=== PATIENT | female | born 1930 | race Caucasian/White ===

== ENCOUNTER 2017-12-30 15:58 | Inpatient (IN) | payer OTHER ==
[~2017-12-30] VITALS: Ht 162.6 cm; Wt 68.6 kg
--- NOTE | ~2017-12-30 | HC ---
[facility] [place] [address] CONSULTATION Name: ILIACHETAN Gayatri Room #: 204-P [facility] IN ..#: [id number] Admission: 12/30/17 Attend Phys: Soila Pearce MD Discharge: 01/02/18 Date of : [birth year] Report #: [id number] THIS REPORT FOR: //name// CC: Arnoldo Pearce DATE OF SERVICE: 12/31/2017 HISTORY OF PRESENT ILLNESS: The patient is an 87-year-old white female with history of hypertension, coronary artery disease, prior CVA with right-sided weakness and aphagia, history of cardiac stents, who was noted to have acute on chronic congestive heart failure. She has been admitted to [facility] and Cardiology is following regarding her CHF symptomatology. She has the prior CVA with aphasia and right-sided weakness. Upon discussion with the patient's [id number], there has been a decline in her overall function as she was able to ambulate short distances, but lately has been pivoting with the help of the using a 4-wheeled walker and has had overall decline in her function. The goal the family is to try to move the patient and her into an assisted living facility. We are seeing her in rehabilitation medicine consultation. PAST MEDICAL HISTORY: Again includes the prior CVA with right-sided weakness and aphasia. There is a history of bronchitis, pericarditis, malaria as a child, hyperlipidemia, spinal stenosis with laminectomy, hypertension, right renal stent, carotid stenosis, status post stenting, right toe amputation, bilateral carpal tunnel surgery, and permanent pacemaker in situ. ALLERGIES: CELECOXIB, SULFA, STATINS. MEDICATIONS: Please see the full medication listing. SOCIAL HISTORY: As noted above. Currently living at the forum in an apartment with her . Family notes that she is active and involved, but is starting to have some memory problems. REVIEW OF SYSTEMS: Did not offer any current complaints of chest pain, shortness of breath or abdominal discomfort, although it is somewhat difficult to get a full history from her with her aphasia. No focal extremity pain complaints. HABITS: Past tobacco abuse, quit greater than a year ago, [id number] history. Alcohol on special occasions. PHYSICAL EXAMINATION: GENERAL: An 87-year-old white female, in no obvious distress. VITAL SIGNS: Last recorded temperature is 97.4, pulse 71, respirations 20, [facility] [address] [place] [address] CONSULTATION Name: CHETAN MORILLO Room #: 204-P [facility] IN [facility].#: [id number] Admission: 12/30/17 Attend Phys: Soila Pearce MD Discharge: 01/02/18 Date of : [birth year]/23/[birth year] Report #: [id number] blood pressure is 115/53. NEUROLOGIC: She is alert. She has a definite aphasia, has difficulty with word formation and word finding. She was able to name a watch for me. She can follow some basic 1 step commands with latency. EOMs appeared to be full. She has functional range of motion strength of the left upper and left lower extremity. Right upper extremity reveal some decreased coordination with strength probably a grade 4-/5. Right lower extremity is probably a 4-/5. There is definite decreased coordination. Negative Johnson's. There was no clonus at the right ankle; however, she does have some skin excoriations over her bilateral anterior shins. Functionally, she was max assist with sit to stand. Gait was 7 steps max assist, handheld. Toileting has been max assist. ASSESSMENT: An 87-year-old white female with the following problems: 1. Cerebrovascular accident with right hemiparesis with late in affect. She has had overall decline in her functional independence the past several months. 2. Acute on chronic congestive heart failure. 3. Acute renal insufficiency. 4. Permanent atrial fibrillation with prior pacemaker. 5. History of atrioventricular node ablation. 6. Hypertension. 7. Peripheral vascular disease. 8. Spinal stenosis. 9. Hypercoagulable. 10. Lower extremity cellulitis. PLAN: The patient is a candidate for an acute -[place] inpatient rehabilitation stay. Bed availability issues will be checked and we will be glad to follow along with you. <ELECTRONICALLY SIGNED> By: Ivan Jernigan MD 01/03/18 1408 1628 28 Ivan Jernigan MD /nt
--- NOTE | ~2017-12-30 | HC ---
[facility] [place] [address] CONSULTATION Name: CHETAN MORILLO Gayatri Room #: 204-P [facility] IN .R.#: [id number] Admission: 12/30/17 Attend Phys: Soila Pearce MD Discharge: Date of : [birth year] Report #: [id number] THIS REPORT FOR: //name// CC: Arnoldo Pearce DATE OF SERVICE: 12/31/2017 CHIEF COMPLAINT: Bilateral lower extremity ulcerations. HISTORY OF PRESENT ILLNESS: This is an 87-year-old female patient with a known history of coronary artery disease and peripheral vascular disease, who presents with lower extremity ulceration and weeping and some pain. She was a direct admission from Dr. Haney's office with congestive heart failure exacerbation. She has had weeping ulcerations that have been progressively worsening on both lower extremities. She has, in the past, had angiography with percutaneous angioplasty and stent placement and has been seen by Dr. Caicedo as well as by Dr. Helms in the past. PAST MEDICAL HISTORY: Positive for history of hypertension, peripheral vascular disease, congestive heart failure and coronary artery disease. The patient has a history of pericarditis; malaria as a child; spinal stenosis, status post laminectomy and atrial fibrillation. CURRENT MEDICATIONS: Include potassium, Eliquis, Protonix, Lopressor, Flomax, Remeron, Demadex, hydrocodone with acetaminophen, Ventolin, aspirin and diltiazem. SOCIAL HISTORY: The patient smoked cigarettes, less than 1 pack per day for 40 years, quit greater than one year ago. Denies significant alcohol use. REVIEW OF SYSTEMS: CONSTITUTIONAL: The patient denies fever, chills or weight loss. NEUROLOGIC: The patient has focal weakness, numbness or tingling. EYES: The patient denies any visual changes, redness or drainage. ENT: The patient denies earache, nasal drainage or sore throat. CARDIOVASCULAR: The patient denies chest pain, palpitation or diaphoresis. PULMONARY: The patient does complain of cough and some shortness of breath and orthopnea. ORTHOPEDIC: The patient complains of pain, swelling and drainage from her legs; some pain in her feet and a sense that her skin feels cold. The patient's other systems in a 14-point review of systems are negative. PHYSICAL EXAMINATION: VITAL SIGNS: Pulse rate 70, respiratory rate 18, blood pressure 104/49 and temperature 97.8. [address] [address] CONSULTATION Name: CHETAN MORILLO Room #: 204-P [facility] IN [facility]#: [id number] Admission: 12/30/17 Attend Phys: Soila Pearce MD Discharge: Date of : [birth year]/23/[birth year] Report #: [id number] GENERAL: This is a chronically ill-appearing female patient, who appears to be in minimal distress. HEENT: Head normocephalic. Nose and throat are clear. NECK: Supple. LUNGS: Reveal a few crackles and are diminished. HEART: Regular rhythm. ABDOMEN: Soft and bowel sounds present. EXTREMITIES: Examination of the lower extremities demonstrates nonpalpable distal pulses. There is slightly delayed capillary refill. There is some warmth to the skin, but it is cooler on the lower extremities than on her trunk and upper extremities. There are multiple ulcerations to both lower extremities, more so on the left than on the right. They are weeping and draining, but they do not appear to be acutely infected. Some of these may be related to her recent volume overload status. LABORATORY DATA: Includes sodium 138, potassium 4.5, chloride 99, CO2 of 32, BUN is 40, creatinine 1.5 and glucose 108. Albumin is 2.9. BNP is 4631. Her white blood cell count is 8.3 with a hemoglobin of 11.6 and hematocrit of 38.2. CLINICAL IMPRESSION: 1. Exacerbation of congestive heart failure with volume overload. 2. Chronic ulcerations, bilateral lower extremities. 3. History of peripheral arterial disease, status post previous percutaneous intervention. 4. History of atrial fibrillation. RECOMMENDATIONS: At this point in time, we will place the patient in boots to add to comfort and help with perfusion of her lower extremities. Recommend elevation if she can tolerate. I do not think we can provide topical compression at this time until her peripheral vascular disease is better evaluated and for that, we will check arterial Dopplers. She may require additional angiography and possible additional intervention depending on what we find on arterial Doppler studies. Additionally, she was noted to have some cracking of her fingertips. Recommendation, we will place Eucerin cream to her hands and fingers twice a day. Local care with topical Silvadene, morphine and Xeroform gauze and absorptive secondary dressings. We will avoid circumferential compression at this time. All findings have been discussed with the patient and her daughter, who are agreeable at this time. I appreciate being asked to see her in consultation. <ELECTRONICALLY SIGNED> By: Pillo De La Cruz MD 01/01/18 1250 [id number] 0141 Pillo De La Cruz MD /nt
--- NOTE | ~2017-12-30 | HC ---
[facility] [place] [address] CONSULTATION Name: CHETAN MORILLO Gayatri Room #: 204-P ADM IN M.R.#: [id number] Admission: 12/30/17 Attend Phys: Soila Pearce MD Discharge: Date of : [birth year]/23/[birth year] Report #: [id number] THIS REPORT FOR: //name// CC: Arnoldo Pearce REASON FOR CONSULTATION: Shortness of breath, peripheral edema. HISTORY OF PRESENT ILLNESS: The patient is an 87-year-old woman with a history of permanent atrial fibrillation with prior AV node ablation in 2014 with Medtronic pacemaker implantation. Her history includes hypertension, dyslipidemia and chronic renal failure, stage 2 to 3, peripheral vascular disease with remote right SFA stenting and remote cardioembolic stroke with expressive aphasia (02/2011). Recently the patient also had problems with progressive lower extremity edema with weeping leg wounds. She has been hospitalized last year, several times with diastolic heart failure in the setting of chronic kidney disease. Her cardiac history and recent evaluation is notable for a normal nuclear stress study within the past 2 months and an echocardiogram demonstrating normal ejection fraction with moderate mitral insufficiency. Despite an aggressive attempt at trying to maintain fluid balance as an outpatient, she continues to have significant lower extremity edema and has lost no weight. She has had abdominal bloating and mild shortness of breath. She has been confined pretty much to a chair and wheelchair due to ongoing problems with shortness of breath. She denies symptoms from her atrial fibrillation. There have been no bleeding problems with apixaban. No history of chest heaviness or pressure. ALLERGIES: Include CRESTOR, ERYTHROMYCIN, LIPITOR7, ALL STATIN MEDICATIONS, WELLBUTRIN, ZETIA, ZOCOR. MEDICATIONS: Include apixaban 2.5 mg twice daily, metoprolol 25 mg twice daily, Protonix 20 mg daily, Flomax 0.4 mg daily, potassium 10 mEq daily, torsemide 40 mg daily. She had been on metolazone 2.5 mg daily, but not recently in the past, this precipitated low potassium levels. PAST MEDICAL HISTORY: Medical records have been reviewed and include history of AV node ablation with Medtronic pacemaker implantation, carotid artery stenting in 2008, carpal tunnel release, peripheral vascular disease with bilateral iliac and femoral artery stents in 2001 and 2005. Osteoporosis, spinal stenosis, cardioembolic stroke with hemiparesis and expressive aphasia, COPD, chronic kidney disease stage 3, total hip arthroplasty in 2010. SOCIAL HISTORY: She is a former smoker, quit in 1970. FAMILY HISTORY: She is . She lives independently [place] [address] CONSULTATION Name: CHETAN MORILLO Room #: 204-P [facility] IN ..#: [id number] Admission: 12/30/17 Attend Phys: Soila Pearce MD Discharge: Date of : [birth year]/23/[birth year] Report #: [id number] REVIEW OF SYSTEMS: All systems negative except as that noted above. PHYSICAL EXAMINATION: GENERAL: A frail elderly woman in no distress. VITAL SIGNS: Blood pressure is 116/64, heart rate is 76 and regular, 133 pounds. HEENT: There are neither xanthelasma, subcutaneous xanthomata, oral mucosal or digital cyanosis or kyphoscoliosis present. CHEST: Reveals diminished breath sounds at both bases. CARDIAC: An irregularly irregular rhythm with normal S1, S2. ABDOMEN: Soft and nontender. EXTREMITIES: Revealed 3+ pitting edema. Blistering and weeping lower extremity lesions. NEUROLOGIC: She has mild expressive aphasia and some right-sided neglect. LABORATORY DATA: Sodium is 134, potassium 5.5, creatinine 1.4, glucose 107, blood work was from 12/25/2017. IMPRESSION: 1. Rvazf-gi-gyiwapz diastolic heart failure. 2. Permanent atrial fibrillation with prior Medtronic pacemaker implantation; history of atrioventricular node ablation. 3. Hypertension. 4. Chronic kidney disease stage III. 5. History of cerebrovascular accident with hemiparesis; mild expressive aphasia. 6. Peripheral vascular disease with peripheral stenting. 7. Spinal stenosis. 8. Lower extremity cellulitis. 9. Hypercoagulable in light of elevated CHADS-VASc score. RECOMMENDATIONS: 1. IV Lasix; dietary salt restriction. 2. Continued use of dose adjusted apixaban. 3. Wound care evaluation. I suspect her ongoing volume overload is multifactorial and related to a component of diastolic heart failure, mitral insufficiency, probably moderately high salt intake as well as incomplete compliance or difficulty in compliance with pharmacologic regimen. I suspect probably long-term may be needed and/or rehabilitation following resolution of her many ongoing comorbidities. [facility] [address] [place] [address] CONSULTATION Name: CHETAN MORILLO Room #: 204-P [facility] IN ..#: [id number] Admission: 12/30/17 Attend Phys: Soila Pearce MD Discharge: Date of : [birth year]/23/[birth year] Report #: [id number] Thank you for asking me to participate in her care. <ELECTRONICALLY SIGNED> By: Bernardo Haney MD, FAC 12/31/17 1624 1620 2344 Bernardo Haney MD, [facility] /
--- NOTE | ~2017-12-30 | 2DMMODE ---
[facility] [address] [place] [address] 2 D/M-MODE ECHOCARDIOGRAM Name: CHETAN MORILLO Room #: 204-P ADM IN ..#: [id number] Admission: 12/30/17 Attend Phys: Soila Pearce Discharge: Date of : [birth year] Date of Service: 12/31/17 1118 Report #: [id number] THIS REPORT FOR: //name// APPROVED REPORT Study performed: 12/31/2017 09:37:40 EXAM: Comprehensive 2D, Doppler, and color-flow Echocardiogram Patient Location: Bedside Room #: 204 Status: routine BSA: 1.68 HR: 73 bpm BP: 125/63 mmHg Rhythm: Paced Other Information Study Quality: Adequate/limited mobility Indications CHF exacerbation. Hx: Permanent Afib. Pacemaker, CVA, PVD 2D Dimensions RVDd: 49.20 mm LVEF(%): 47.76 (>50%) IVSd: 10.64 (7-11mm) LVOT Diam: 18.60 (18-24mm) LVDd: 31.51 mm PWd: 11.28 (7-11mm) Ascending Ao: 27.70 (22-36mm) LVDs: 24.21 (25-40mm) Aortic Root: 26.36 mm Miranda's LVEF: 47.76 % Volumes Left Atrial Volume (Systole) Single Plane 4CH: 43.04 mL Single Plane 2CH: 63.93 mL LA ESV Index: 34.00 mL/m2 Aortic Valve AoV Peak Qasim.: 1.98 m/s AO Peak Gr.: 12.44 mmHg LVOT Max P.28 mmHg AO Mean Gr.: 10.42 mmHg AO V2 Mean: 1.57 m/s LVOT Max V: 1.03 m/s AO V2 VTI: 50.03 cm JESE Vmax: 1.42 cm2 Mitral Valve [facility] [address] [address] 2 D/M-MODE ECHOCARDIOGRAM Name: CHETAN MORILLO Room #: 204-P [facility] IN ..#: [id number] Admission: 12/30/17 Attend Phys: Soila Pearce Discharge: Date of : [birth year] Date of Service: 12/31/17 1118 Report #: [id number] MV Decel. Time: 249.31 ms MV E Max Qasim.: 1.40 m/s IVRT: 55.36 ms Pulmonary Valve PV Peak Qasim.: 0.59 m/s PV Peak Gr.: 1.39 mmHg Tricuspid Valve TR Peak Qasim.: 2.37 m/s RAP Estimate: 15.00 mmHg TR Peak Gr.: 22.79 mmHg PA Pressure: 38.00 mmHg Left Ventricle The left ventricle is normal size. There is normal LV segmental wall motion. There is normal left ventricular wall thickness. Left ventricular systolic function is normal. LVEF is 55%. This study is not technically sufficient to allow evaluation of the LV diastolic function. Right Ventricle Right ventricle is severely dilated. Right ventricle is mildly hypokinetic. Pacemaker lead is present in the right ventricle. Atria Left atrium is mildly dilated. Right atrium is severely dilated. Aortic Valve Aortic valve is thickened and calcified. Mild aortic regurgitation. Mild aortic stenosis. JESE by continuity equation is 1.5cm2. Mitral Valve Mitral valve leaflets are thickened. Moderate mitral annular calcification. Moderate mitral regurgitation. No evidence of mitral valve stenosis. Tricuspid Valve The tricuspid valve is normal in structure. Severe tricuspid regurgitation. Estimated PAP is 40mmHg. Pulmonic Valve The pulmonary valve is normal in structure. Mild pulmonic regurgitation. Great Vessels The aortic root is normal in size. The ascending aorta is normal in [facility] [address] [place] [address] 2 D/M-MODE ECHOCARDIOGRAM Name: CHETAN MORILLO Room #: 204-P [facility] IN [facility].#: [id number] Admission: 12/30/17 Attend Phys: Soila Pearce Discharge: Date of : [birth year] Date of Service: 12/31/17 1118 Report #: [id number] size. IVC is dilated and collapses <50% with inspiration. Pericardium There is no pericardial effusion. <Conclusion> Left ventricular systolic function is normal. LVEF is 55%. Normal LV segmental wall motion. Right ventricle is severely dilated, mildly hypokinetic. Right atrium is severely dilated. Aortic valve is thickened and calcified. Mild aortic regurgitation. Mild aortic stenosis. JESE by continuity equation is 1.5cm2. Mitral valve leaflets are thickened. Moderate mitral annular calcification. Moderate mitral regurgitation. Severe tricuspid regurgitation. Estimated pulmonary artery pressure of 40mmHg. There is no pericardial effusion. <ELECTRONICALLY SIGNED> By: Bernardo Haney MD, [facility] 12/31/17 1118 1118 1118 Bernardo Haney MD, FACC /INF
[~2017-12-30 15:58] MED LIST: ADULT LOW DOSE81 MG; ALEVE220 MG PO; ASPIRIN325 PO; CARDIZEM CD180 MG PO; COUMADIN 2.5MG2.5 M1; CRESTOR; ENOXAPARIN40 MG/0.4 SC; FLONASE; HYDROCODON-ACE1 EAC8 PO; LORATIDINE 10 M10 M1; PACERONE 200 M200 MG NG; PLAVIX 75 MG TA75 MG; PREDNISONE 10 M10 M1; SYMBICORT160 MCG/4. INH; VALIUM5 MG; VENTOLIN HFA INH8 GM IH; [UNRECOGNIZED DRUG - CODE]
[2017-12-30] MEDS ORDERED: KLOR-CON 10 ER10 MEQ PO (16:37)
[2017-12-30] MEDS ORDERED: PROTONIX 20 MG20 M1 PO (16:38)
[2017-12-30] MEDS ORDERED: ELIQUIS2.5 MG PO (16:38)
[2017-12-30] MEDS ORDERED: LOPRESSOR25 PO (16:39)
[2017-12-30 16:40] VITALS: BP 109/68
[2017-12-30] MEDS ORDERED: FLOMAX0.4 MG PO (16:42)
[2017-12-30 16:43] LABS: PLATELET COUNT 231 thou/uL (150-400)
[2017-12-30] MEDS ORDERED: REMERON15 MG PO (16:43)
[2017-12-30] MEDS ORDERED: DEMADEX20 MG PO (16:43)
[2017-12-30 16:45] LABS: HEMATOCRIT 40.1 % (37.0-47.0); HEMOGLOBIN 12.1 gm/dL (12.0-15.0); MCHC 30.3 g/dL (28.0-37.0); MCV 79.5 fL (80.0-100.0); RBC 5.04 mil/uL (4.20-5.00); RDW 21.7 % (10.5-14.5); WBC 8.7 thou/uL (4.0-11.0)
[2017-12-30 16:58] LABS: ALBUMIN 2.9 g/dL (3.4-5.0); CALCIUM 8.2 mg/dL (8.5-10.1); CREATININE 1.7 mg/dL (0.6-1.0); POTASSIUM 5.2 mmol/L (3.5-5.1); TOTAL BILIRUBIN 0.5 mg/dL (<0.1-1.0); TOTAL PROTEIN 7.1 g/dL (6.4-8.2)
[2017-12-30 17:24] LABS: ANISOCYTOSIS 1+; MICROCYTES 1+
[2017-12-30 17:25] LABS: HYPOCHROMASIA SLIGHT; POLYCHROMASIA OCCASIONAL
[2017-12-30 19:28] VITALS: BP 130/82
[2017-12-30 19:45] LABS: URINE BILIRUBIN NEGATIVE (Negative); URINE BLOOD NEGATIVE (Negative); URINE CLARITY CLEAR; URINE COLOR YELLOW; URINE GLUCOSE-RANDOM* NEGATIVE (Negative); URINE KETONES NEGATIVE (Negative); URINE LEUKOCYTES NEGATIVE (Negative); URINE NITRITE NEGATIVE (Negative); URINE PROTEIN (DIPSTICK) NEGATIVE (Negative); URINE UROBILINOGEN 0.2 E.U./dl (0.2-1.0)
[2017-12-30 23:37] VITALS: BP 121/63
[2017-12-31 03:36] LABS: ABSOLUTE NEUTROPHILS 6.5 thou/uL (1.4-8.2); BASOPHILS 0.5 % (0.0-2.0); EOSINOPHILS 0.4 % (0.0-3.0); HEMATOCRIT 38.2 % (37.0-47.0); HEMOGLOBIN 11.6 gm/dL (12.0-15.0); LYMPHOCYTES 8.9 % (24.0-44.0); MCH 24.1 pg (26.0-34.0); MCHC 30.5 g/dL (28.0-37.0); MCV 78.9 fL (80.0-100.0); MONOCYTES 11.9 % (1.0-8.0); PLATELET COUNT 214 thou/uL (150-400); POLYS 78.3 % (36.0-66.0); RBC 4.83 mil/uL (4.20-5.00); RDW 20.9 % (10.5-14.5); WBC 8.3 thou/uL (4.0-11.0)
[2017-12-31 03:40] VITALS: BP 125/63
[2017-12-31 03:43] LABS: CALCIUM 8.5 mg/dL (8.5-10.1); CREATININE 1.5 mg/dL (0.6-1.0); MAGNESIUM 1.2 mg/dL (1.8-2.4); POTASSIUM 4.5 mmol/L (3.5-5.1)
[2017-12-31 06:43] LABS: ANISOCYTOSIS 2+; HYPOCHROMASIA 1+; OVALOCYTES FEW; POIKILOCYTOSIS SLIGHT; POLYCHROMASIA 1+; TARGET CELLS FEW
[2017-12-31 08:53] VITALS: BP 115/53
[2017-12-31 15:50] VITALS: BP 56/34
[2017-12-31 19:47] VITALS: BP 1045/49; BP 105/49
[2018-01-01 01:45] LABS: CALCIUM 8.3 mg/dL (8.5-10.1); CREATININE 1.6 mg/dL (0.6-1.0); POTASSIUM 3.8 mmol/L (3.5-5.1)
[2018-01-01 04:04] VITALS: BP 119/55
[2018-01-01 08:00] VITALS: BP 134/70
[2018-01-01 12:00] VITALS: BP 84/51
[2018-01-01 16:00] VITALS: BP 99/51
[2018-01-01 19:43] VITALS: BP 88/46
[2018-01-02 03:04] LABS: CALCIUM 7.9 mg/dL (8.5-10.1); CREATININE 1.6 mg/dL (0.6-1.0); POTASSIUM 3.7 mmol/L (3.5-5.1)
[2018-01-02 05:22] VITALS: BP 101/55
[2018-01-02 08:04] VITALS: BP 121/56
[2018-01-02 16:30] VITALS: BP 101/75
[2018-01-02] MEDS ORDERED: ACETAMINOPHEN325 M1 PO (17:59)
[2018-01-02] MEDS ORDERED: MAG6464 MG PO (18:00)
[2018-01-02] MEDS ORDERED: K-DUR 20 MEQ T20 MEQ PO (18:01)
[2018-01-02] MEDS ORDERED: METOLAZONE 5 MG5 MG PO (18:01)
[2018-01-02] MEDS ORDERED: DEMADEX 2020 MG/1 TA PO (18:01)
[2018-01-02] MEDS ORDERED: MIRALAX17 GM PO (18:02)
[2018-01-02 19:49] VITALS: BP 106/57
== END 2018-01-02 22:09 | DRG 291 ==
LOC: 2N 15:58
PROVIDERS: Internal Medicine; Internal Medicine Endocrinology, Diabetes & Metabolism; Nurse Practitioner
DX: I13.0 Hypertensive heart and chronic kidney disease with heart failure and stage 1 through stage 4 chronic kidney disease, or unspecified chronic kidney disease (principal); I50.33 Acute on chronic diastolic (congestive) heart failure; N17.9 Acute kidney failure, unspecified; L03.119 Cellulitis of unspecified part of limb; D68.59 Other primary thrombophilia; L97.929 Non-pressure chronic ulcer of unspecified part of left lower leg with unspecified severity; L97.919 Non-pressure chronic ulcer of unspecified part of right lower leg with unspecified severity; E44.0 Moderate protein-calorie malnutrition; I69.351 Hemiplegia and hemiparesis following cerebral infarction affecting right dominant side; I48.2 Chronic atrial fibrillation; I73.9 Peripheral vascular disease, unspecified; M81.0 Age-related osteoporosis without current pathological fracture; J44.9 Chronic obstructive pulmonary disease, unspecified; N18.3 Chronic kidney disease, stage 3 (moderate); M48.00 Spinal stenosis, site unspecified; E78.5 Hyperlipidemia, unspecified; I25.10 Atherosclerotic heart disease of native coronary artery without angina pectoris; E86.0 Dehydration; I07.1 Rheumatic tricuspid insufficiency; E87.5 Hyperkalemia; Z68.26 Body mass index [BMI] 26.0-26.9, adult; Z89.421 Acquired absence of other right toe(s); Z87.891 Personal history of nicotine dependence; I69.320 Aphasia following cerebral infarction; Z95.0 Presence of cardiac pacemaker; Z88.1 Allergy status to other antibiotic agents; Z88.8 Allergy status to other drugs, medicaments and biological substances; Z88.2 Allergy status to sulfonamides; Z98.42 Cataract extraction status, left eye; Z98.41 Cataract extraction status, right eye; Z90.49 Acquired absence of other specified parts of digestive tract
CPT/HCPCS: 10081

== ENCOUNTER 2018-01-02 17:11 | Inpatient (IN) | payer OTHER ==
[~2018-01-02] VITALS: Ht 152.4 cm; Wt 64.0 kg
--- NOTE | ~2018-01-02 | PLAN ---
[facility] [place] [address] REHAB UNIT PLAN OF CARE Name: CHETAN MORILLO Gayatri Room #: 511-P [facility] IN M.R.#: [id number] Admission: 01/02/18 Attend Phys: Ivan Jernigan MD Discharge: 01/10/18 Date of : [birth year]/23/[birth year] Report #: [id number] THIS REPORT FOR: //name// CC: Ivan Dotyickson DATE OF SERVICE: 01/04/2018 PROGRESS NOTE/OVERALL PLAN OF CARE The patient was seen earlier. She was in no distress. Temperature 36.4, last recorded with pulse 65, respirations 16, blood pressure 101/64. She was sleepy, but easily arouses. She has expressive aphasia. She has had some incontinence and nursing are noted to be using pads on her. Functionally, she is working in therapies with transfers, mod assist. Gait mod assist 5 feet with a front-wheeled walker. In occupational therapy, lower body dressing is dependent, upper body is min assist. ASSESSMENT: 1. Cerebrovascular accident with right hemiparesis, late effect. She has had a significant decline from her prior status. 2. Acute on chronic congestive heart failure. 3. Severe tricuspid insufficiency. 4. Permanent atrial fibrillation with prior pacemaker. 5. Hypertension. 6. Peripheral vascular disease. 7. Spinal stenosis. 8. Hypercoagulable. 9. Peripheral vascular disease with left superficial femoral artery occlusion. 10. History of lower extremity cellulitis. PLAN: The overall plan of care is based on the preadmission screen, post-admission physician evaluation and information garnered from therapy assessments. 1. Estimated length of stay is probably at least 10 days to 2 weeks and likely longer. 2. Medical prognosis is reasonably good. 3. Anticipated interventions includes the interdisciplinary acute inpatient rehabilitation program with the goal of maximizing the patient's functional independence, so she can hopefully return back home. PT, OT and speech, rehabilitation nursing assisting regarding medication management, skin care prophylaxis, bowel and bladder issues and nursing education. We will have the window covering sales consultant physicians involved. 4. Anticipated functional outcomes would be for her to improve, hopefully to be able to get up and moving without walker better rather than having her push her in the 4-wheeled walker. Goal is to improve her overall functional [facility] [address] [place] [address] REHAB UNIT PLAN OF CARE Name: CHETAN MORILLO Room #: 511-P [facility] IN ..#: [id number] Admission: 01/02/18 Attend Phys: Ivan Jernigan MD Discharge: 01/10/18 Date of : [birth year]/23/[birth year] Report #: [id number] independence. This will include PT and OT for basic ADLs as well as further assessment from a cognitive perspective. Her aphasia is a significant limiting factor. 5. Discharge destination would be into an assisted living facility, which is the family's goal. They have been living in an apartment. 6. Expected therapy by discipline includes PT, OT and speech 1 hour per day each five days a week throughout the duration of the acute inpatient rehabilitation stay. <ELECTRONICALLY SIGNED> By: Ivan Jernigan MD 01/14/18 1510 0707 [id number] Ivan Jernigan MD /[facility]
--- NOTE | ~2018-01-02 | HC ---
[facility] [place] [address] CONSULTATION Name: SILVINA MORILLO Room #: 511-P [facility] IN ..#: [id number] Admission: 01/02/18 Attend Phys: Ivan Jernigan MD Discharge: 01/10/18 Date of : [birth year] Report #: [id number] THIS REPORT FOR: //name// CC: Ivan Figueroa DATE OF SERVICE: 01/05/2018 ATTENDING PHYSICIAN: Ivan Jernigan MD. DOCUMENT COORDINATOR: Arnoldo rBiggs, PhD. 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 The patient is reported to have a functional decline that is significant within the last 4-6 weeks. She carries diagnoses that include acute on chronic congestive heart failure, severe tricuspid insufficiency, permanent atrial fibrillation with prior pacemaker, history of AV marina ablation, hypertension, peripheral vascular disease, spinal stenosis, hypercoagulable, peripheral vascular disease with left superficial femoral artery occlusion and a history of lower extremity cellulitis. A complete description of her medical condition and history can be found in her medical record. Neuropsychological consultation was requested to provide assistance in the assessment of cognitive and emotional status and provide recommendations and services. Prior to this most recent admission, she was living with her in an independent apartment at [facility]. She has been there with him for 2 years. She has 3 children. Both daughters are very involved. 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 She is a high school graduate. Prior to her stroke, she had excessive alcohol use history. Her is reported to present with dementia and had been helping her manage medication. She was requiring assistance with basic and instrumental activities of daily living prior to this admission. Additionally, her activity level had been very sedentary. TECHNIQUES UTILIZED: Clinical interview, review of medical records, staff consultation and behavioral observation, mini mental status exam 2 brief version, and family interview - daughters (Mae Partida and Silvina Mitchell). EXAMINATION FINDINGS: The patient was difficult to arouse for the initial assessment. She is not able to describe current symptoms or the reason for her hospitalization. Although she reported difficulty with her memory. She is [facility] [address] [place] [address] CONSULTATION Name: SILVINA MORILLO Room #: 511-P [facility] IN ..#: [id number] Admission: 01/02/18 Attend Phys: Ivan Jernigan MD Discharge: 01/10/18 Date of : [birth year] Report #: [id number] described as having very poor energy with fatigue and tiredness during the day. The patient has not been able to manage medication and required assistance with basic and instrumental activities of daily living. She has no prior history of treatment for depression, although mirtazapine is being used at HS to assist with appetite and sleep. Her daughters have indicated concern about having her return to the independent apartment with her . They feel that the environment is not safe and are concerned about her 's judgment and decision making regarding his ability to care for her. It should be noted that her is reported to be drinking alcohol on a daily basis. Driving is reported as unsafe. 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 At this time, her level of orientation is inconsistent. Indicated is a family meeting that includes her children and to ensure they all are on the same page regarding the level of care, extent of environmental supervision and what options for placement and supervision are available. Thank you very much for allowing me to provide the consultation on this patient. <ELECTRONICALLY SIGNED> By: Arnoldo Briggs, PhD 01/13/18 1804 [id number] Arnoldo Briggs, PhD /nt
--- NOTE | ~2018-01-02 | H ---
[facility] [place] [address] HISTORY AND PHYSICAL Name: CHETAN MORILLO Room #: 511-P ADM IN M.R.#: [id number] Admission: 01/02/18 Attend Phys: Ivan Jernigan MD Discharge: Date of : [birth year] Report #: [id number] THIS REPORT FOR: //name// CC: Ivan Figueroa DATE OF SERVICE: 01/03/2018 HISTORY OF PRESENT ILLNESS: The patient is an 87-year-old female originally admitted to [facility] on 12/30/2017. She has history of hypertension, coronary artery disease and a prior CVA with right-sided weakness and aphasia, and history of cardiac stents. She was admitted with worsening acute on chronic congestive heart failure. Upon discussion with the patient's [id number]. There had been a noted decline in her overall function over the past several months. She previously had been able to ambulate short distances, but lately has just been pivoting with the help of her using a 4-wheeled walker. The goal of the family is to try to improve her functional independence and move the patient and her into an assisted living facility. She was cared on the acute hospital [facility] with cardiology involved and treatment of her heart failure. She does have severe tricuspid insufficiency. She has had a prior pacemaker and history of AV marina ablation. She also was having problems with peripheral arterial disease and was diagnosed with a left superficial femoral artery occlusion. She is anticoagulated on Eliquis and interventional radiology has been involved. There may be outpatient followup in this regard, but will defer to Dr. Scott. Geriatric service has been involved as well. With her significant functional decline, it is felt that she has a late effect from the CVA with right hemiparesis with a functional decline and has now been admitted for acute in-hospital inpatient rehabilitation. PAST MEDICAL HISTORY: Includes the prior CVA with right-sided weakness and aphasia. History of bronchitis, pericarditis malaria as a child, hyperlipidemia, spinal stenosis with laminectomy, hypertension, right renal stent, carotid stenosis, status post stenting, right toe amputation, bilateral carpal tunnel surgery, and permanent pacemaker. PAST SURGICAL HISTORY: As noted above. ALLERGIES: CELECOXIB, SULFA, STATINS. MEDICATIONS: Please see the full medication listing. They include the patient's current medications and these were individually reconciled. They also include vitamins, herbals, and supplements. SOCIAL HISTORY: As noted above. She has been living at the [facility] in an apartment with her . Family has noted that the patient's is active and involved, but is [place] to [place] [address] HISTORY AND PHYSICAL Name: ILIACHETAN Gayatri Room #: 511-P [facility] IN .R.#: [id number] Admission: 01/02/18 Attend Phys: Ivan Jernigan MD Discharge: Date of : [birth year] Report #: [id number] HABITS: Prior history of past tobacco use, quit greater than a year ago, [id number] history. Alcohol on special occasions. REVIEW OF SYSTEMS: She was somewhat groggy. No complaints of chest pain or shortness of breath. No current abdominal discomfort. Somewhat difficult as far as communicating with her aphasia. She notes she is much better after having a bowel movement yesterday prior to rehabilitation admission. PHYSICAL EXAMINATION: GENERAL: An 87-year-old white female in no obvious distress. VITAL SIGNS: Last recorded temperature 36.3, pulse 76, respirations 18, blood pressure 126/50. NEUROLOGIC: She has a definite aphasia with some problems with word finding. She can follow basic 1 step commands. EOMs appeared to be full. CHEST: Sounded clear to auscultation. CARDIOVASCULAR: Regular rate and rhythm. ABDOMEN: Bowel sounds positive, nontender. GENITOURINARY AND RECTAL: Deferred. She actually has had the Ceron catheter removed and is noted to be voiding per nursing. EXTREMITIES: She has functional range of motion of the left upper and left lower extremity with strength grade 4+/5. Right upper extremity reveals some decreased coordination with strength probably a grade 4-/5. Right lower extremity is probably a grade 4-/5 as well. There is definite decreased coordination. Negative Johnson's. She does have a PRAFO boots in place. No focal calf swelling. Functionally, she has been max to mod assist with basic transfers with gait max assist 8 steps, handheld. ASSESSMENT: An 87-year-old white female with the following problem list: 1. Cerebrovascular accident with right hemiparesis, late effect. She has had a significant functional decline from her prior status. 2. Acute on chronic congestive heart failure. 3. Severe tricuspid insufficiency. 4. Permanent atrial fibrillation with prior pacemaker. History of AV marina ablation. 5. Hypertension. 6. Peripheral vascular disease. 7. Spinal stenosis. 8. Hypercoagulable. 9. Peripheral vascular disease with left superficial femoral artery occlusion. 10. History of lower extremity cellulitis. PLAN: The patient is admitted for acute in-hospital inpatient rehabilitation. From a postadmission physician evaluation perspective, there are no relevant changes since the preadmission screening. Please see the above review of prior and current medical and functional conditions and comorbidities. Please see the [address] [address] HISTORY AND PHYSICAL Name: CHETAN MORILLO Room #: 511-P ADM IN [facility]#: [id number] Admission: 01/02/18 Attend Phys: Ivan Jernigan MD Discharge: Date of : [birth year] Report #: [id number] patient's prior and current functional status. As far as risk of complication, she has the multiple medical comorbidities as noted above. The initial plan of care involves the interdisciplinary acute inpatient rehabilitation program with the goal of maximizing the patient's functional independence, so that she can hopefully return back to her prior living situation. Prognosis is reasonably good with estimated length of stay probably at least 10 days to 2 weeks and likely longer if needed. Potential barriers would include her multiple medical comorbidities and decreased functional status. The patient meets diagnostic criteria for an acute in-hospital inpatient rehabilitation stay. She meets medical necessity criteria with the multiple medical issues noted above. She does have the tolerance for therapies and has appropriate discharge goals back to the home setting. <ELECTRONICALLY SIGNED> By: Ivan Jernigan MD 01/03/18 1408 [id number] Ivan Jernigan MD /[facility]
[~2018-01-02 17:11] MED LIST changes: +DEMADEX20 MG PO; +ELIQUIS2.5 MG PO; +FLOMAX0.4 MG PO; +KLOR-CON 10 ER10 MEQ PO; +LOPRESSOR25 PO; +PROTONIX 20 MG20 M1 PO; +REMERON15 MG PO
[2018-01-02] MEDS ORDERED: ACETAMINOPHEN325 M1 PO (17:59)
[2018-01-02] MEDS ORDERED: MAG6464 MG PO (18:00)
[2018-01-02] MEDS ORDERED: DEMADEX 2020 MG/1 TA PO (18:01)
[2018-01-02] MEDS ORDERED: METOLAZONE 5 MG5 MG PO (18:01)
[2018-01-02] MEDS ORDERED: K-DUR 20 MEQ T20 MEQ PO (18:01)
[2018-01-02] MEDS ORDERED: MIRALAX17 GM PO (18:02)
[2018-01-02 22:00] VITALS: BP 126/50
[2018-01-03 03:17] LABS: HEMATOCRIT 37.8 % (37.0-47.0); HEMOGLOBIN 11.5 gm/dL (12.0-15.0); MCH 24.1 pg (26.0-34.0); MCHC 30.3 g/dL (28.0-37.0); MCV 79.5 fL (80.0-100.0); RBC 4.75 mil/uL (4.20-5.00); RDW 21.6 % (10.5-14.5); WBC 9.8 thou/uL (4.0-11.0)
[2018-01-03 03:27] LABS: CALCIUM 8.7 mg/dL (8.5-10.1); CREATININE 1.4 mg/dL (0.6-1.0); POTASSIUM 4.8 mmol/L (3.5-5.1)
[2018-01-03 10:06] VITALS: BP 127/59
[2018-01-03 20:10] VITALS: BP 101/64
[2018-01-04 08:00] VITALS: BP 123/61
[2018-01-04 19:50] VITALS: BP 120/72
[2018-01-05 08:00] VITALS: BP 103/43
[2018-01-05 13:33] LABS: BE(vivo) 10.1 mmol/L (-2 to +3); HCO3 33.6 mmol/L (22.0-26.0); PO2 151.7 mmHg (80.0-100.0); pH 7.532 (7.360-7.450); sO2 99.2 % (92.0-98.0)
[2018-01-05 13:54] LABS: CALCIUM 8.8 mg/dL (8.5-10.1); CREATININE 1.6 mg/dL (0.6-1.0); POTASSIUM 3.1 mmol/L (3.5-5.1)
[2018-01-05 14:03] LABS: HEMATOCRIT 36.5 % (37.0-47.0); MCH 23.9 pg (26.0-34.0); MCHC 30.2 g/dL (28.0-37.0); MCV 79.1 fL (80.0-100.0); PLATELET COUNT 212 thou/uL (150-400); RBC 4.62 mil/uL (4.20-5.00); RDW 20.9 % (10.5-14.5); WBC 6.9 thou/uL (4.0-11.0)
[2018-01-05 16:21] LABS: HYPOCHROMASIA 3+; OVALOCYTES FEW; TARGET CELLS FEW
[2018-01-05 16:22] LABS: ANISOCYTOSIS 3+
[2018-01-05 18:31] VITALS: BP 127/53
[2018-01-05 21:12] VITALS: BP 111/54
[2018-01-06 05:48] LABS: HEMATOCRIT 35.4 % (37.0-47.0); HEMOGLOBIN 10.7 gm/dL (12.0-15.0); MCH 24.1 pg (26.0-34.0); MCHC 30.2 g/dL (28.0-37.0); MCV 79.5 fL (80.0-100.0); PLATELET COUNT 202 thou/uL (150-400); RBC 4.45 mil/uL (4.20-5.00); RDW 21.7 % (10.5-14.5); WBC 6.3 thou/uL (4.0-11.0)
[2018-01-06 06:03] LABS: CALCIUM 8.4 mg/dL (8.5-10.1); CREATININE 1.2 mg/dL (0.6-1.0); MAGNESIUM 2.1 mg/dL (1.8-2.4)
[2018-01-06 06:46] LABS: ABSOLUTE NEUTROPHILS 4.9 thou/uL (1.4-8.2); ANISOCYTOSIS 1+
[2018-01-06 08:00] VITALS: BP 112/58
[2018-01-06 20:18] VITALS: BP 128/64
[2018-01-07 06:25] LABS: CALCIUM 8.8 mg/dL (8.5-10.1); CREATININE 1.3 mg/dL (0.6-1.0); POTASSIUM 4.3 mmol/L (3.5-5.1)
[2018-01-07 08:30] VITALS: BP 121/85
[2018-01-07 20:58] VITALS: BP 155/69
[2018-01-08 09:00] VITALS: BP 144/67
[2018-01-08 19:54] VITALS: BP 148/70
[2018-01-09 09:00] VITALS: BP 115/64
[2018-01-09] MEDS ORDERED: LOPRESSOR25 PO (16:52)
[2018-01-09] MEDS ORDERED: ELIQUIS2.5 MG PO (16:52)
[2018-01-09] MEDS ORDERED: NEURONTIN 300300 M1 PO (16:52)
[2018-01-09 20:00] VITALS: BP 152/66
[2018-01-10 08:00] VITALS: BP 124/67
[2018-01-10] MEDS ORDERED: NEURONTIN 300300 M1 PO (11:30)
== END 2018-01-10 11:45 | DRG 64 ==
PROVIDERS: Hospitalist; Internal Medicine; Nurse Practitioner; Nurse Practitioner Family; Physical Medicine & Rehabilitation
DX: I63.9 Cerebral infarction, unspecified (principal); I50.33 Acute on chronic diastolic (congestive) heart failure; G93.40 Encephalopathy, unspecified; G81.91 Hemiplegia, unspecified affecting right dominant side; D68.59 Other primary thrombophilia; N17.9 Acute kidney failure, unspecified; E44.0 Moderate protein-calorie malnutrition; L97.929 Non-pressure chronic ulcer of unspecified part of left lower leg with unspecified severity; L97.919 Non-pressure chronic ulcer of unspecified part of right lower leg with unspecified severity; R47.01 Aphasia; I25.10 Atherosclerotic heart disease of native coronary artery without angina pectoris; I11.0 Hypertensive heart disease with heart failure; I07.1 Rheumatic tricuspid insufficiency; I48.2 Chronic atrial fibrillation; I73.9 Peripheral vascular disease, unspecified; M48.00 Spinal stenosis, site unspecified; E87.6 Hypokalemia; R41.0 Disorientation, unspecified; F01.50 Vascular dementia, unspecified severity, without behavioral disturbance, psychotic disturbance, mood disturbance, and anxiety; E78.5 Hyperlipidemia, unspecified; R53.81 Other malaise; E87.5 Hyperkalemia; Z68.25 Body mass index [BMI] 25.0-25.9, adult; Z95.5 Presence of coronary angioplasty implant and graft; Z95.0 Presence of cardiac pacemaker; Z89.421 Acquired absence of other right toe(s); Z88.2 Allergy status to sulfonamides; Z88.1 Allergy status to other antibiotic agents; Z88.8 Allergy status to other drugs, medicaments and biological substances
CPT/HCPCS: 10112